=== PATIENT | female | born 1975 | race African-American/Black ===

== ENCOUNTER 2017-06-28 08:42 | Emergency (ER) | payer SELFPAY ==
[~2017-06-28 08:42] MED LIST: Sodium Chloride 0.9% 1,000 ML BAG ONE
[2017-06-28] MEDS ORDERED: Ondansetron ODT 4 MG TAB ONE ×2 (09:46→10:12)
[2017-06-28 10:14] LABS: Hemoglobin 9.6 g/dL (12.0-16.0); Mean Corpuscular HGB CONC 29.3 g/dL (32.0-36.0); Mean Corpuscular Hemoglobin 22.5 pg (27.0-31.0); Platelet Count 208 thou/uL (130-400); Red Blood Cell (RBC) Count 4.25 mill/uL (4.20-5.40); White Blood Cell (WBC) Count 7.9 thou/uL (4.8-10.8)
[2017-06-28 10:15] LABS: #Basophils 0.1 thou/uL (0.0-0.2); #Lymphocytes 1.1 thou/uL (1.20-3.40); #Monocytes 0.3 thou/uL (0.11-0.59); #Neutrophils 6.4 thou/uL (1.40-6.50); %Basophils 0.8 % (0.0-1.0); %Eosinophils 0.3 % (0.0-10.0); %Lymphocytes 14.3 % (21.0-51.0); %Monocytes 3.4 % (0.0-10.0); %Neutrophils 81.2 % (42.0-75.0)
[2017-06-28 10:19] LABS: Bilirubin Moderate (Negative); Blood, Urine Negative (Negative); Clarity Slightly Cloudy (Clear); Glucose, Urine (Dipstick) 100 mg/dL (Negative); Leukocyte Trace (Negative); Nitrite Negative (Negative); Protein, Urine (Dipstick) 30 mg/dL (Neg-Trace); Specific Gravity, Urine 1.015 (1.005-1.030); Urobilinogen > or = 8.0 mg/dL (0.2-1.0)
[2017-06-28 10:22] LABS: ALT (SGPT) 599 U/L (8-55); AST (SGOT) 1150 U/L (5-34); Albumin 4.4 g/dL (3.5-5.0); Alkaline Phosphatase 80 U/L (40-150); Anion Gap 17 mmol/L (10-20); BUN (Urea Nitrogen) 13 mg/dL (7.0-18.7); Bilirubin, Total 1.8 mg/dL (0.2-1.2); Calc. Creatinine Clearance 0 mL/min (70-130); Calcium 9.6 mg/dL (7.8-10.44); Carbon Dioxide 19 mmol/L (22-29); Chloride 104 mmol/L (98-107); Estimated GFR-MDRD Greater than 90; Globulin 3.6 g/dL (2.4-3.5); Glucose 90 mg/dL (70-105); Potassium 3.6 mmol/L (3.5-5.1); Sodium 136 mmol/L (136-145)
[2017-06-28 10:30] LABS: Bacteria/HPF 3+ HPF (None Seen); RBC/HPF 0-3 HPF (0-3); WBC/HPF 21-50 HPF (0-3)
[2017-06-28 10:54] LABS: Amphetamine Not Detected (NotDetected); Barbiturates Screen Not Detected (NotDetected); Benzodiazepine Screen Not Detected (NotDetected); Cocaine Metabolite Screen Not Detected (NotDetected); Medtox Control Line Valid? VALID (VALID); Methadone Not Detected (NotDetected); Methamphetamine Not Detected (NotDetected); Opiate Screen Not Detected (NotDetected); Oxycodone Screen Not Detected (NotDetected); Phencyclidine (PCP) Not Detected (NotDetected); THC/Cannabinoid Screen Not Detected (NotDetected); Tricyclic Screen Not Detected (NotDetected)
[2017-06-28 11:01] LABS: Alcohol Less than 10 mg/dL (Less than 10); Salicylate Less than 8.0 mg/dL (15.0-30.0)
[2017-06-28 11:14] LABS: Thyroid Stimulating Hormone 1.6647 uIU/mL (0.35-4.94)
--- NOTE | 2017-06-28 11:26 | CT ---
CT ABDOMEN AND PELVIS WITH IV CONTRAST: DATE: 06/28/17. HISTORY: Transaminitis, hypotension. COMPARISON: 08/22/15. FINDINGS: Cardiac silhouette appears mildly enlarged. Lung bases are clear. The liver, spleen, pancreas, bila teral adrenal glands, kidneys, abdominal aorta, and urinary bladder demonstrate a normal CT Appearanc e. The uterus demonstrates heterogeneity. There is a low-density focus within the region of the lef t adnexa measuring 2.1 cm likely related to small cyst. There is mild gaseous distention of loops of small bowel. No dilated loops of small bowel are presen t. There is mild thickening involving the sawyer of the ascending colon, but this is likely attributable to incomplete distention as opposed to thickening related to colitis. The appendix is normal in caliber. No free fluid, fluid collection, or lymphadenopathy is seen in the abdomen or pelvis. No other inter javon change from prior exam. IMPRESSION: 1. Heterogeneity of the uterus which is nonspecific. In addition, there is prominence in the region of the cervix. Pelvic ultrasound may be helpful for further evaluation of these findings and direct visualization of the cervix also may be helpful. 2. Left adnexal cyst. 3. Mild cardiomegaly. 4. No CT evidence of appendicitis. 5. Mild thickening of the sawyer of the ascending colon which is thought to most likely be attributab le to incomplete distention as opposed to thickening secondary to colitis. POS: RAFAT
[2017-06-28 17:33] LABS: HBSAg Index 0.21 S/CO (0-0.99); Hep B Surf Ag Non-Reactive S/CO (NonReactive)
[2017-06-28 17:33] LABS: Hep C IgG Ab Non-Reactive (NonReactive); Hep C Index 0.14 S/CO (0-0.79)
== END 2017-06-28 11:57 | disposition home or self-care (01) ==
LOC: MADERS 08:42
DX: K70.10 Alcoholic hepatitis without ascites (principal); D50.9 Iron deficiency anemia, unspecified; E86.0 Dehydration; I51.7 Cardiomegaly
CPT/HCPCS: 74177; 80053; 80306; 80307; 81003; 81015; 83605; 83880; 84443; 85025; 86803; 87340; 93005; J7050; Q0162

== ENCOUNTER 2017-09-05 06:29 | Emergency (ER) | payer SELFPAY | END 2017-09-05 08:00 | disposition home or self-care (01) | LOC: MADERS 06:29 | DX: K02.9 Dental caries, unspecified (principal) | CPT/HCPCS: 99282 ==

== ENCOUNTER 2020-02-10 02:06 | Emergency (ER) | payer SELFPAY ==
[2020-02-10] MEDS ORDERED: Penicillin V Potassium 250 MG TAB ONE (03:06)
[2020-02-10] MEDS ORDERED: Ibuprofen 600 MG TAB ONE (03:06)
== END 2020-02-10 03:11 | disposition home or self-care (01) ==
LOC: MADERS 02:06
DX: K08.89 Other specified disorders of teeth and supporting structures (principal)
CPT/HCPCS: 99282

== ENCOUNTER 2020-07-19 13:05 | Emergency (ER) | payer SELFPAY | END 2020-07-19 14:18 | disposition home or self-care (01) | LOC: MADERS 13:05 | DX: K02.9 Dental caries, unspecified (principal) | CPT/HCPCS: 99282 ==

== ENCOUNTER 2020-07-20 02:10 | Emergency (ER) | payer SELFPAY ==
[2020-07-20] MEDS ORDERED: Acetaminophen/Codeine 30-300mg Tablet ONE (02:31)
== END 2020-07-20 02:43 | disposition home or self-care (01) ==
LOC: MADERS 02:10
DX: K08.89 Other specified disorders of teeth and supporting structures (principal); R68.84 Jaw pain
CPT/HCPCS: 99283